=== PATIENT | female | born 2000 | race American Indian/Alaskan Native ===

== ENCOUNTER 2019-01-03 22:02 | Emergency (ER) | payer OTHER, BC ==
[2019-01-03 22:06] VITALS: BP 112/65
--- NOTE | 2019-01-03 22:29 | Emergency Department Report ---
Blank Doc - Documentation Documentation: 18-year-old female that presents with n/v/d. This initial assessment/diagnostic orders/clinical plan/treatment(s) is/are subject to change based on patient's health status, clinical progression and re- assessment by fellow clinical providers in the ED. Further treatment and workup at subsequent clinical providers discretion. Patient/guardians urged not to elope from the ED as their condition may be serious if not clinically assessed and managed. Initial orders include: 1- Patient sent to [facility] for further evaluation and treatment 2- labs 3- UA
[2019-01-03 23:06] LABS: Basophils # (Auto) 0.1 K/mm3 (0.0-0.1); Basophils % (Auto) 0.5 % (0.0-1.8); Eosinophils # (Auto) 0.1 K/mm3 (0.0-0.4); Eosinophils % (Auto) 0.6 % (0.0-4.3); Hematocrit 40.8 % (30.3-42.9); Hemoglobin 13.4 gm/dl (10.1-14.3); Lymphocytes # (Auto) 1.9 K/mm3 (1.2-5.4); Lymphocytes % (Auto) 18.1 % (13.4-35.0); Mean Corpuscular HGB Conc 33 % (30-34); Mean Corpuscular Volume 87 fl (79-97); Monocytes # (Auto) 0.5 K/mm3 (0.0-0.8); Monocytes % (Auto) 4.7 % (0.0-7.3); Platelet Count 263 K/mm3 (140-440); Red Blood Count 4.67 M/mm3 (3.65-5.03); Red Cell Distribution Width 13.3 % (13.2-15.2)
[2019-01-03 23:30] LABS: Alanine Aminotransferase 13 units/L (7-56); Albumin 4.4 g/dL (3.9-5); BUN/Creatinine Ratio 17; Blood Urea Nitrogen 12 mg/dL (7-17); Calcium 9.5 mg/dL (8.4-10.2); Hemolysis Index 7
[2019-01-04] MEDS ORDERED: PEPCID IV ONE (00:02)
[2019-01-04] MEDS ORDERED: ZOFRAN IV ONE (00:02)
[2019-01-04] MEDS ORDERED: TORADOL IV ONE (00:02)
[2019-01-04] MEDS ORDERED: NACL 0.9% 1000 ML 1,000 ML IV ONE (00:02)
[2019-01-04 03:18] LABS: Bacteria,Urine 1+ /HPF (Negative); Bilirubin,Urine NEG (Negative); Blood,Urine NEG (Negative); Color,Urine Yellow (Yellow); Mucus,Urine 2+ /HPF; Protein,Urine <15 mg/dL mg/dL (Negative); Sperm,Urine FEW /HPF (NP); Urobilinogen,Urine < 2.0 mg/dL (<2.0)
--- NOTE | 2019-01-04 03:55 | Emergency Department Report ---
ED N/V/D HPI - General Chief complaint: Nausea/Vomiting/Diarrhea Stated complaint: N/V Time Seen by Provider: 01/03/19 22:28 Source: patient, family Mode of arrival: Ambulatory Limitations: No Limitations - History of Present Illness Initial comments: Patient is a nulliparous 18 yo AA female with no past medical history who presents to the ED with c/o acute onset persistent nausea, vomiting, epigastric pain and diarrhea x 12 hours. Patient states that she is unable to keep anything down due to persistent nausea and vomiting. Patient denies dizziness, syncope, vision changes, dysuria, vision changes, headache, chest pain, dyspnea, sore throat or fever and chills and hematochezia and hematemesis MD complaint: nausea, vomiting, diarrhea, abdominal pain -: Sudden, hour(s) (12) Description of Vomiting: food contents, watery, bilious Description of Diarrhea: water Associated Abdominal Pain: Yes (epigastric ) Location: epigastric Radiation: none Severity: moderate Pain Scale: 5 Quality: cramping, aching, dull Consistency: intermittent Improves with: none Worsens with: eating, vomiting Context: possible food poisoning Associated Symptoms: denies other symptoms, loss of appetite, malaise, nausea/vomiting. denies: myalgias, chest pain, cough, diaphoresis, fever/chills, rash, dysuria, shortness of breath, syncope, other - Related Data Previous Rx's Medication Instructions Recorded Last Taken Type Dicyclomine [Bentyl] 20 mg PO Q6H PRN #20 tablet 01/04/19 Unknown Rx Ondansetron [Zofran Odt] 4 mg PO Q6HR PRN #21 tab.rapdis 01/04/19 Unknown Rx raNITIdine HCl [Zantac] 150 mg PO Q12H #30 tablet 01/04/19 Unknown Rx Allergies Allergy/AdvReac Type Severity Reaction Status Date / Time No Known Allergies Allergy Unverified 01/03/19 22:31 ED Review of Systems ROS: Stated complaint: N/V Other details as noted in HPI Constitutional: denies: chills, fever Eyes: denies: eye pain, eye discharge, vision change ENT: denies: ear pain, throat pain Respiratory: denies: cough, shortness of breath, wheezing Cardiovascular: denies: chest pain, palpitations Endocrine: no symptoms reported Gastrointestinal: abdominal pain, nausea, vomiting, diarrhea Genitourinary: denies: urgency, dysuria, discharge Musculoskeletal: denies: back pain, joint swelling, arthralgia Skin: denies: rash, lesions Neurological: denies: headache, weakness, paresthesias Psychiatric: denies: anxiety, depression Hematological/Lymphatic: denies: easy bleeding, easy bruising ED Past Medical Hx - Past Medical History Previous Medical History?: No - Surgical History Past Surgical History?: No - Social History Smoking Status: Never Smoker Substance Use Type: None - Medications Home Medications: Home Medications Medication Instructions Recorded Confirmed Last Taken Type Dicyclomine [Bentyl] 20 mg PO Q6H PRN #20 tablet 01/04/19 Unknown Rx Ondansetron [Zofran Odt] 4 mg PO Q6HR PRN #21 tab.rapdis 01/04/19 Unknown Rx raNITIdine HCl [Zantac] 150 mg PO Q12H #30 tablet 01/04/19 Unknown Rx ED Physical Exam - General Limitations: No Limitations General appearance: alert, in no apparent distress - Head Head exam: Present: atraumatic, normocephalic, normal inspection - Eye Eye exam: Present: normal appearance, PERRL, EOMI Pupils: Present: normal accommodation - ENT ENT exam: Present: normal exam, normal orophraynx, mucous membranes moist, TM's normal bilaterally, normal external ear exam - Neck Neck exam: Present: normal inspection, full ROM - Respiratory Respiratory exam: Present: normal lung sounds bilaterally. Absent: respiratory distress, wheezes, rales, rhonchi, chest wall tenderness, accessory muscle use, prolonged expiratory - Cardiovascular Cardiovascular Exam: Present: regular rate, normal rhythm, normal heart sounds. Absent: systolic murmur, diastolic murmur, rubs, gallop - GI/Abdominal GI/Abdominal exam: Present: soft, tenderness (Mildly tender epigastric tenderness), normal bowel sounds. Absent: distended, guarding, rebound, hyperactive bowel sounds, hypoactive bowel sounds, organomegaly - Extremities Exam Extremities exam: Present: normal inspection, full ROM, normal capillary refill - Back Exam Back exam: Present: normal inspection, full ROM. Absent: tenderness, CVA tenderness (R), muscle spasm, paraspinal tenderness, vertebral tenderness - Neurological Exam Neurological exam: Present: alert, oriented X3, CN II-XII intact, normal gait, reflexes normal - Psychiatric Psychiatric exam: Present: normal affect, normal mood - Skin Skin exam: Present: warm, dry, intact, normal color. Absent: rash ED Course Vital Signs 01/03/19 22:05 Temperature 98.3 F Pulse Rate 95 H Respiratory 14 Rate Blood Pressure 112/65 O2 Sat by Pulse 97 Oximetry - Reevaluation(s) Reevaluation #1: 01/04/19 04:00 This is a 18 yo female who presented with nausea, vomiting and diarrhea with abdominal pain. In the ED patient is alert and oriented x3 and is in no acute distress. Patient was treated in the ED for nausea, vomiting and pain, and also given antacids. Patient also given normal saline 1 liter IV x 1. On reevaluation, patient's symptoms resolved and passed oral fluid challenge. Lab test results reviewed and are nonactionable. Patient was discharged home on medications and advised to maintain a clear liquid diet for 12-24 hours and to follow up with her PCP in 5-7 days for reevaluation. Patient was advised to return to the ED immediately if symptoms get worse. 01/04/19 04:02 ED Medical Decision Making - Lab Data Result diagrams: 01/03/19 22:47 01/03/19 22:47 - Medical Decision Making This is a 18 yo female who presented with nausea, vomiting and diarrhea with abdominal pain. In the ED patient is alert and oriented x3 and is in no acute distress. Patient was treated in the ED for nausea, vomiting and pain, and also given antacids. Patient also given normal saline 1 liter IV x 1. On reevaluation, patient's symptoms resolved and passed oral fluid challenge. Lab test results reviewed and are nonactionable. Patient was discharged home on medications and advised to maintain a clear liquid diet for 12-24 hours and to follow up with her PCP in 5-7 days for reevaluation. Patient was advised to return to the ED immediately if symptoms get worse. - Differential Diagnosis gastroenteritis; abdominal pain; vomiting; GERD Critical care attestation.: If time is entered above; I have spent that time in minutes in the direct care of this critically ill patient, excluding procedure time. ED Disposition Clinical Impression: Viral gastroenteritis, Nausea and vomiting in adult patient Abdominal pain Qualifiers: Abdominal location: epigastric Qualified Code(s): R10.13 - Epigastric pain Disposition: DC- TO HOME OR SELFCARE Is pt being admited?: No Does the pt Need Aspirin: No Condition: Stable Instructions: Acute Nausea and Vomiting (ED), Abdominal Pain (ED), Gastroenteritis (ED) Additional Instructions: Maintain a clear Liquid diet for 12-24 hours, take medications with food, drink plenty of fluids and follow up with your Primary care Physician in 5-7 days for reevaluation. Return to the ED immediately if symptoms get worse Prescriptions: Dicyclomine [Bentyl] 20 mg PO Q6H PRN #20 tablet PRN Reason: Pain , Severe (7-10) raNITIdine HCl [Zantac] 150 mg PO Q12H #30 tablet Ondansetron [Zofran Odt] 4 mg PO Q6HR PRN #21 tab.rapdis PRN Reason: Nausea Referrals: PRIMARY CARE, [Primary Care Provider] - 3-5 Days Forms: Work/School Release Form(ED) Time of Disposition: 03:55 Print Language: TAMAZIGHT
== END 2019-01-04 04:50 | disposition home or self-care (01) ==
LOC: ED 22:02
DX: A08.4 Viral intestinal infection, unspecified (principal)
CPT/HCPCS: 36415; 80053; 81001; 83690; 84703; 85025; 96361; 96374; 96375; 99283; J1885; J2405; J7030